=== PATIENT | male | born 1960 | race Caucasian/White ===

== ENCOUNTER 2019-01-07 16:57 | Emergency (ER) | payer SELFPAY ==
[~2019-01-07] VITALS: Ht 177.8 cm; Wt 74.4 kg
[2019-01-07 17:03] VITALS: Ht 177.8 cm; Wt 74.4 kg
[2019-01-07 18:37] VITALS: BP 127/81
== END 2019-01-07 18:37 | disposition home or self-care (01) ==
LOC: ED 16:57
DX: S52.572A Other intraarticular fracture of lower end of left radius, initial encounter for closed fracture (principal); W21.03XA Struck by baseball, initial encounter; Y93.89 Activity, other specified; Y92.89 Other specified places as the place of occurrence of the external cause; Y99.8 Other external cause status
CPT/HCPCS: J1885